=== PATIENT | male | born 1965 | race African-American/Black ===

== ENCOUNTER 2017-09-27 23:00 | Emergency (ER) | payer SELFPAY ==
[~2017-09-27] VITALS: Ht 175.3 cm; Wt 89.3 kg
[~2017-09-27 23:00] MED LIST: ADVIL,NUPRIN,M200 MG PO; ASPIR-LOW81 MG PO; AUGMENTIN875 MG PO; MOTRIN600 MG PO; TYLENOL REGULA325 MG PO
[2017-09-28] MEDS ORDERED: GABAPENTIN100 MG PO (04:10)
[2017-09-28 04:26] VITALS: BP 167/86
== END 2017-09-28 04:26 | disposition home or self-care (01) ==
LOC: EME 23:00
DX: M54.16 Radiculopathy, lumbar region (principal); H53.8 Other visual disturbances; M79.662 Pain in left lower leg
CPT/HCPCS: 70450; 93971; 99281; 99284

== ENCOUNTER 2017-09-29 19:18 | Emergency (ER) | payer SELFPAY ==
[~2017-09-29] VITALS: Ht 175.3 cm; Wt 88.2 kg
[~2017-09-29 19:18] MED LIST changes: +GABAPENTIN100 MG PO
[2017-09-29 20:19] LABS: HEMATOCRIT 47.6 % (38.0-50.0); HEMOGLOBIN 16.4 G/DL (12.5-16.6); MCHC 34.5 G/DL (30.0-36.0); RBC DIS.WIDTH-CV 12.7 % (11.8-14.6); RBC DIS.WIDTH-SD 42.1 % (39-53); RED BLOOD COUNT 5.29 M/uL (4.00-5.50); WHITE BLOOD COUNT 4.4 K/uL (4.1-10.2)
[2017-09-29 20:28] LABS: CHLORIDE 109 mEq/L (99-109); POTASSIUM 3.9 mEq/L (3.7-5.4); SODIUM 140 mEq/L (136-147)
[2017-09-29 20:30] LABS: GLUCOSE 99 mg/dL (70-99)
[2017-09-29 20:34] LABS: CREATININE 1.1 mg/dL (0.6-1.3); GFR ESTIMATE (CALCULATED) > 59 mL/min/ (58.99-99999)
[2017-09-29 20:35] LABS: UREA NITROGEN (BUN) 14 mg/dL (9-23)
[2017-09-29 20:51] LABS: PLAT.SUFFICIENCY ADEQUATE; PLATELET COUNT 244 K/uL (156-360)
[2017-09-29 23:04] VITALS: BP 142/89
== END 2017-09-29 23:12 | disposition home or self-care (01) ==
LOC: EME 19:18
DX: R42 Dizziness and giddiness (principal); M54.16 Radiculopathy, lumbar region; R53.1 Weakness; H53.8 Other visual disturbances; I44.0 Atrioventricular block, first degree
CPT/HCPCS: 71046; 80048; 85027; 93005; 99281; 99284

== ENCOUNTER 2017-12-07 09:58 | Emergency (ER) | payer SELFPAY ==
[~2017-12-07] VITALS: Ht 175.3 cm; Wt 91.0 kg
[2017-12-07] MEDS ORDERED: NORCO 5/3251 TABLET PO (12:06)
[2017-12-07] MEDS ORDERED: NAPROXEN500 MG PO (12:06)
[2017-12-07 12:52] VITALS: BP 144/79
== END 2017-12-07 12:52 | disposition home or self-care (01) ==
LOC: EME 09:58
DX: S46.911A Strain of unspecified muscle, fascia and tendon at shoulder and upper arm level, right arm, initial encounter (principal); M54.12 Radiculopathy, cervical region; X50.3XXA Overexertion from repetitive movements, initial encounter; Y99.0 Civilian activity done for income or pay
CPT/HCPCS: 73030; 99281; 99284

== ENCOUNTER 2018-01-05 22:09 | Emergency (ER) | payer SELFPAY ==
[~2018-01-05] VITALS: Ht 175.3 cm; Wt 88.5 kg
[~2018-01-05 22:09] MED LIST changes: +NAPROXEN500 MG PO; +NORCO 5/3251 TABLET PO
[2018-01-05 23:52] VITALS: BP 138/87
== END 2018-01-05 23:52 | disposition home or self-care (01) ==
LOC: EME 22:09
DX: S02.5XXA Fracture of tooth (traumatic), initial encounter for closed fracture (principal); S01.532A Puncture wound without foreign body of oral cavity, initial encounter; X58.XXXA Exposure to other specified factors, initial encounter; Z79.82 Long term (current) use of aspirin
CPT/HCPCS: 99281; 99283